=== PATIENT | male | born 2005 | race Two or more races ===

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

== ENCOUNTER 2024-06-25 16:48 | Emergency (ER) | payer MEDICAID ==
[~2024-06-25] VITALS: Ht 167.6 cm; Wt 65.9 kg
[~2024-06-25 16:48] MED LIST: ONDA-144 PO
[2024-06-25] MEDS: TETANUS-DIPTH-ACEL PERTUSSIS 0.5ML SYR Tdap IM ONE (16:56)
[2024-06-25] MEDS: ceFAZolin 1GM/50ML 50 ML IV ONE (17:04)
[2024-06-25] MEDS: ONDANSETRON HCL 4 MG/2 ML VIAL IV ONE (17:04)
[2024-06-25] MEDS: MORPHINE SULFATE 4 MG/ML SYR/VIAL IV ONE (17:04)
[2024-06-25] MEDS: SODIUM CHLORIDE 0.9% 1,000 ML IV ONE (17:04)
[2024-06-25 17:10] VITALS: O2SAT 100
[2024-06-25 17:23] LABS: Basophils # (auto) 0.1 10 ^3/uL (0-0.2); Basophils % (auto) 0.5 % (0.0-2.0); Eosinophils # (auto) 0.2 10 ^3/uL (0-0.8); Eosinophils % (auto) 1.5 % (0.0-7.0); Hematocrit 48.1 % (41.0-53.0); Hemoglobin 17.1 g/dL (13.5-17.5); Lymphocytes # (auto) 2.5 10 ^3/uL (0.4-5.4); Lymphocytes % (auto) 21.9 % (10.0-50.0); Mean Corpuscular Hemoglobin 31.7 pg (28.0-32.0); Mean Corpuscular Hgb Conc. 35.6 g/dL (32.0-36.0); Mean Corpuscular Volume 89.1 fL (80.0-100.0); Monocytes # (auto) 0.8 10 ^3/uL (0-1.3); Monocytes % (auto) 6.6 % (0.0-12.0); Neutrophils % (auto) 69.5 % (37.0-80.0); Nucleated Red Blood Cells % 0.7 %; White Blood Cell 11.6 10^3/uL (4.4-10.8)
[2024-06-25 17:32] LABS: Chloride 105 mmol/L (98-107); Potassium 3.3 mmol/L (3.5-5.1); Sodium 142 mmol/L (136-145)
[2024-06-25 17:33] LABS: Anion Gap 14 (5-15); Carbon Dioxide 23 mmol/L (20-30)
[2024-06-25 17:39] LABS: BUN/Creatinine Ratio 6.2 (10.0-20.0); Blood Urea Nitrogen 5 mg/dL (9-23); Glucose 120 mg/dL (74-106)
[2024-06-25 17:41] LABS: INR 1.09 (0.9-1.15); Partial Thromboplastin Time 24.8 SEC (24.5-34.5); Prothrombin Time 11.5 sec (9.3-11.8)
[2024-06-25] MEDS: IOHEXOL 350 MG/ML 100ML IJ ONE (17:53)
[2024-06-25 18:45] VITALS: BP 161/62; PULSE 89; RESP 17; TEMP 98; O2SAT 99
== END 2024-06-25 19:03 | disposition short-term general hospital (02) ==
LOC: ER 16:48 → EDBD 16:48 → ER 19:03
DX: S72.435A Nondisplaced fracture of medial condyle of left femur, initial encounter for closed fracture (principal); S81.032A Puncture wound without foreign body, left knee, initial encounter; F17.210 Nicotine dependence, cigarettes, uncomplicated; W34.00XA Accidental discharge from unspecified firearms or gun, initial encounter; Y93.89 Activity, other specified; Y92.89 Other specified places as the place of occurrence of the external cause; Y99.8 Other external cause status
CPT/HCPCS: 36415; 73562; 80048; 85025; 85610; 85730; 86850; 86900; 86901; 96365; 96375; 99285; J0690; J2270; J2405; J7030; Q9967; 90715

== ENCOUNTER 2024-07-06 17:07 | Emergency (ER) | payer MEDICAID ==
[~2024-07-06] VITALS: Ht 165.1 cm; Wt 65.0 kg
[2024-07-06 18:14] VITALS: BP 130/95; PULSE 140; RESP 16; TEMP 97.6; O2SAT 97
[2024-07-06] MEDS: KETOROLAC TROMETH 60MG/2ML VIAL IM ONE (18:53)
[2024-07-06] MEDS ORDERED: ZOFR4T PO (19:22)
== END 2024-07-06 19:34 | disposition home or self-care (01) ==
LOC: ER 17:07
DX: M25.562 Pain in left knee (principal); F17.210 Nicotine dependence, cigarettes, uncomplicated; Z47.1 Aftercare following joint replacement surgery
CPT/HCPCS: 96372; 99283; J1885